=== PATIENT | male | born 1950 | race Caucasian/White ===

== ENCOUNTER 2017-01-17 09:16 | Observation (INO) | payer MEDICARE, OTHER ==
[~2017-01-17] VITALS: Ht 175.3 cm; Wt 76.3 kg
[2017-01-17 10:24] LABS: HEMOGLOBIN 13.2 gm/dl (14.0-17.5); RED BLOOD COUNT 3.98 M/UL (4.20-5.50); WHITE BLOOD COUNT 6.8 K/UL (4.5-11.0)
[2017-01-17] MEDS ORDERED: ECOTRIN81 MG PO (22:33)
[2017-01-17] MEDS ORDERED: PROAIR HFA8.5 GM INH (22:33)
[2017-01-17] MEDS ORDERED: COREG 3.125M3.125 MG PO (22:33)
[2017-01-17] MEDS ORDERED: EYE ITCH RELIEF5 ML OP (22:35)
[2017-01-17] MEDS ORDERED: SINGULAIR10 MG PO (22:35)
[2017-01-17] MEDS ORDERED: OMEPRAZOLE40 MG PO (22:36)
[2017-01-17] MEDS ORDERED: ALDACTONE 25MG25 MG PO (22:36)
[2017-01-17] MEDS ORDERED: ZANTAC 150 MG150 MG PO (22:36)
[2017-01-17] MEDS ORDERED: SYNTHROID 50 M50 MCG PO (22:37)
[2017-01-17] MEDS ORDERED: VITAMIN D1000 UNIT PO (22:37)
[2017-01-17] MEDS ORDERED: COZAAR 25MG TAB25 MG PO (22:38)
[2017-01-17] MEDS ORDERED: PRAVACHOL40 MG PO (22:38)
[2017-01-18 07:43] LABS: HEMOGLOBIN 12.8 gm/dl (14.0-17.5); RED BLOOD COUNT 3.86 M/UL (4.20-5.50); WHITE BLOOD COUNT 5.8 K/UL (4.5-11.0)
[2017-01-18] MEDS ORDERED: LASIX40 MG PO (10:13)
== END 2017-01-19 12:07 | disposition home or self-care (01) ==
LOC: ER1 09:16 → ZEROF 15:58 → MED SURG 4 21:49
PROVIDERS: Emergency Medicine; ADMIT Internal Medicine
DX: I11.0 Hypertensive heart disease with heart failure (principal); I50.33 Acute on chronic diastolic (congestive) heart failure; N17.9 Acute kidney failure, unspecified; D53.9 Nutritional anemia, unspecified; D69.6 Thrombocytopenia, unspecified; E78.5 Hyperlipidemia, unspecified; K21.9 Gastro-esophageal reflux disease without esophagitis; I07.1 Rheumatic tricuspid insufficiency; Z88.1 Allergy status to other antibiotic agents; Z88.8 Allergy status to other drugs, medicaments and biological substances; Z79.82 Long term (current) use of aspirin; Z79.899 Other long term (current) drug therapy; Z95.810 Presence of automatic (implantable) cardiac defibrillator
CPT/HCPCS: ECHO; 36415; 71010; 71020; 80053; 81001; 82550; 82553; 82607; 82746; 83874; 83880; 84484; 85025; 93005; 93306; 94664; 96374; 96376; 99285; G0378; J1940